=== PATIENT | male | born 1990 | race Caucasian/White ===

== ENCOUNTER 2017-08-16 03:45 | Emergency (ER) | payer SELFPAY ==
[~2017-08-16] VITALS: Ht 177.8 cm; Wt 103.0 kg
[2017-08-16] MEDS ORDERED: IBUPROFEN 600MG TABLET PO ONE (08:45)
[2017-08-16 12:15] VITALS: BP 118/70
== END 2017-08-16 12:31 | disposition home or self-care (01) ==
LOC: ER 03:45
DX: J06.9 Acute upper respiratory infection, unspecified (principal); I10 Essential (primary) hypertension; J45.909 Unspecified asthma, uncomplicated; F17.200 Nicotine dependence, unspecified, uncomplicated; Z90.49 Acquired absence of other specified parts of digestive tract
CPT/HCPCS: 71045; 87070; 87430; 87804; 99285; Z7610